=== PATIENT | male | born 1985 | race Two or more races ===

== ENCOUNTER 2022-01-28 18:47 | Emergency (ER) | payer MEDICAID ==
[~2022-01-28] VITALS: Ht 182.9 cm; Wt 75.0 kg
[2022-01-28] MEDS ORDERED: ONDANSETRON HCL 4MG/2ML INJ IV STA (22:41)
[2022-01-28] MEDS ORDERED: SODIUM CHLORIDE 0.9% 1,000 ML IV ONE (22:45)
[2022-01-28 23:39] LABS: BASOPHILS % 0.1 % (0.0-2.0); HEMATOCRIT. 48.2 % (42.0-52.0); HEMOGLOBIN. 15.9 g/dL (14.0-18.0); LYMPHOCYTES % 8.6 % (20.0-50.0); MEAN CORPUSCULAR HEMOGLOBIN 28.4 pg (28.0-32.0); MEAN CORPUSCULAR VOLUME 86.1 fL (80.0-94.0); MEAN PLATELET VOLUME 8.9 fl (7.4-10.4); MONOCYTES % 2.6 % (2.0-8.0); NEUTROPHILS % 88.7 % (40.0-76.0); PLATELET 228 x1000/uL (130-400); RED CELL DISTRIBUTION WIDTH 13.7 % (11.6-14.6)
[2022-01-28 23:45] LABS: CHLORIDE 101 mEq/L (98-107)
[2022-01-29] MEDS ORDERED: SODIUM CHLORIDE 0.9% 1,000 ML IV ONE (00:15)
[2022-01-29 01:23] VITALS: BP 113/74
== END 2022-01-29 01:25 | disposition home or self-care (01) ==
LOC: ER 18:47
DX: N17.9 Acute kidney failure, unspecified (principal); E86.0 Dehydration; F12.10 Cannabis abuse, uncomplicated
CPT/HCPCS: 36415; 80053; 85025; 96361; 96374; 99283; J2405; J7030